=== PATIENT | male | born 1960 | race Two or more races ===

== ENCOUNTER 2018-04-04 14:51 | Inpatient (IN) | payer MEDICARE, OTHER ==
[2018-04-04] VITALS (10 sets, daily range): BP systolic 106–162; BP diastolic 53–131
[~2018-04-04] VITALS: Ht 180.3 cm; Wt 121.6 kg
[2018-04-04] MEDS ORDERED: FUROSEMIDE 40 MG/4 ML VIAL IV ONE (15:00)
--- NOTE | 2018-04-04 15:00 | NUR ---
SOB SINCE YESTERDAY, BILATERAL LOWER EXTREMITY, PT IS ON NON-REBREATHER SAT 98%, VSS, PT WAS PUT ON MONITOR AND HOSPITAL MD JORGE AT BS.
[2018-04-04] MEDS ORDERED: FUROSEMIDE 40 MG/4 ML VIAL ONE (15:03)
[2018-04-04 15:11] LABS: BASOPHILS # (AUTO) 0.1 /CMM (0.0-0.2); BASOPHILS % (AUTO) 0.5 % (0.0-2.0); EOSINOPHILS % (AUTO) 1.9 % (0.0-6.0); HEMATOCRIT 39 % (39-51); HEMOGLOBIN 12.9 g/dL (13.5-17.5); LYMPHOCYTES # (AUTO) 0.2 /CMM (0.8-4.8); LYMPHOCYTES % (AUTO) 2.2 % (20.0-44.0); MEAN CORPUSCULAR HGB CONC 33 g/dl (31.0-36.0); MEAN CORPUSCULAR VOLUME 78 fL (80-96); MONOCYTES # (AUTO) 0.5 /CMM (0.1-1.30); MONOCYTES % (AUTO) 4.5 % (2.0-12.0); NEUTROPHILS % (AUTO) 90.9 % (43.0-81.0); PLATELET COUNT (AUTO) 188 /CMM (150-450); RDW COEFFICIENT OF VARIATION 15.2 (11.5-15.0)
[2018-04-04] MEDS ORDERED: DILTIAZEM HCL 25 MG IV ONE ×2 (15:18→15:51)
[2018-04-04 15:25] LABS: CALCIUM, SERUM 8.8 mg/dL (8.5-10.1); CREATININE 1.8 mg/dL (0.6-1.3); INR 1.47 (0.85-1.15); POTASSIUM 4.2 mmol/L (3.5-5.1)
[2018-04-04 15:29] LABS: TROPONIN I 0.039 ng/mL (0.00-0.056)
[2018-04-04] MEDS ORDERED: DILTIAZEM HCL 50 MG IV IV ONE ×2 (15:30→16:00)
[2018-04-04 15:38] LABS: ALBUMIN 3.8 g/dL (3.4-5.0); BILIRUBIN,DIRECT 0.7 mg/dL (0.0-0.2); BILIRUBIN,TOTAL 1.5 mg/dL (0.2-1.0); TOTAL PROTEIN, SERUM 7.1 g/dL (6.4-8.2)
[2018-04-04] MEDS ORDERED: FENO160T PO (15:38)
[2018-04-04] MEDS ORDERED: INSU100V7 SQ (15:38)
[2018-04-04] MEDS ORDERED: FURO-144 PO (15:38)
[2018-04-04] MEDS ORDERED: BENA40TA8 PO (15:38)
[2018-04-04] MEDS ORDERED: CARV25TA2 PO (15:38)
[2018-04-04] MEDS ORDERED: METF-440 PO (15:38)
[2018-04-04] MEDS ORDERED: BLOO-668 IN (15:38)
[2018-04-04] MEDS ORDERED: RIVA10TA PO (15:39)
[2018-04-04] MEDS ORDERED: ATOR40TA PO (15:39)
[2018-04-04] MEDS ORDERED: INSU10VI3 SQ (15:39)
--- NOTE | 2018-04-04 15:43 | NUR ---
CALLED NURSING SUP. FOR BRANDI BED
--- NOTE | 2018-04-04 16:52 | NUR ---
[facility] PAGED, DRIVE IN TELLER
[2018-04-04] MEDS ORDERED: DILTIAZEM HCL IV 125 MG in IV NS 0.9% 100 ML IV PRN (17:00)
[2018-04-04] MEDS ORDERED: AMIODARONE 150 MG/3 ML VIAL IV ONE (17:00)
--- NOTE | 2018-04-04 17:05 | NUR ---
ICU 260 FOR CHF,A-FIB, RESP. DISTRESS, ADMITTING
[2018-04-04] MEDS ORDERED: HYDROCODONE/APAP 5/325MG 1 EACH TABLET PO PRN (18:00)
[2018-04-04] MEDS: INSULIN ASPART/LISPRO 100 UNIT/ML CARTRIDGE SQ SCH (18:00)
[2018-04-04] MEDS ORDERED: ZOLPIDEM TARTRATE 5 MG TABLET PO PRN (18:00)
[2018-04-04] MEDS ORDERED: AMIODARONE 900 MG in IV D5W 482 ML IV PRN (18:00)
[2018-04-04] MEDS ORDERED: ACETAMINOPHEN 325 MG TABLET PO PRN (18:00)
[2018-04-04] MEDS ORDERED: AMIODARONE 150 MG in IV D5W 100 ML IV ONE ×4 (18:00)
[2018-04-04] MEDS ORDERED: FUROSEMIDE 40 MG/4 ML VIAL IV SCH (18:00)
[2018-04-04] MEDS ORDERED: Z GUARD REMEDY 2 OZ OINT TP PRN (18:00)
[2018-04-04] MEDS ORDERED: ONDANSETRON HCL/PF 4 MG/2 ML VIAL IVP PRN (18:00)
[2018-04-04] MEDS ORDERED: MAGNESIUM HYDROXIDE 30 ML UDC PO PRN (18:00)
[2018-04-04] MEDS ORDERED: MAG HYDROX/AL HYDROX/SIMETH 30 ML UDC PO PRN (18:00)
--- NOTE | 2018-04-04 18:10 | NUR ---
RN INITIAL NOTES RECEIVED PT FROM ER VIA EDELMIRA. PT AWAKE, A/OX4. ON 02 AT 6LPM VIA [place]. SOB NOTED. RR 38, 02 SAT 88%. PLACED COMFORTABLY IN BED. CONNECTED TO MONITOR, A.FIB UNCONTROLLED. IV LINES FLUSHED. BODY ASSESSMENT DONE. PICTURE TAKEN AND PLACED IN THE CHART. PT ORIENTED TO ROOM AND CALL LIGHT. PT CONTINENT. PREFERS USE OF URINAL. PT STARTED ON AMIO DRIP. WILL CLOSELY MONITOR. DR. LOBO AWARE OF ADMISSION. WILL MONITOR.
[2018-04-04] MEDS: ATORVASTATIN 40 MG TABLET PO SCH (18:25)
--- NOTE | 2018-04-04 18:30 | NUR ---
RN NOTES NOVOLOG 20 UNITS NOT GIVEN, BLOOD SUGAR 115. PT HASN'T EATEN SINCE AM. CORDARONE 900MG IVP NOT GIVEN. PT ALREADY ON AMIO DRIP AT 1MG/MIN.
[2018-04-04] MEDS: AMIODARONE 900 MG in IV D5W 482 ML IV PRN (18:50)
--- NOTE | 2018-04-04 21:55 | NUR ---
ICU/ENGINE BOSS PT'S BLOOD SUGAR WAS 171, PT GIVEN LANTUS 45 UNITS SQ ORDERED BY . WILL CONTINUE TO MONITOR PT'S SUGARS ORDERED BY .
[2018-04-04] MEDS: CARVEDILOL 12.5 MG TABLET PO SCH (22:19)
[2018-04-04] MEDS: BLOOD SUGAR DIAGNOSTIC 1 EACH STRIP IN SCH (22:25)
[2018-04-04] MEDS: INSULIN GLARGINE, 100 UNIT/ML CARTRIDGE SQ SCH (22:33)
--- NOTE | 2018-04-04 23:21 | NUR ---
ICU/SEASONING MIXER PT HAS HISTORY OF RESPIRATORY FAILURE AND HAS A VERY PRODUCTIVE COUGH. CHEST XRAY SHOWS SMALL PLEURAL EFFUSION. PT IS CURRENTLY ON AMIODARONE DRIP WITH HIGH RATE HEART OF 135. ORDERED XOPENEX NBT 1.25 Q 6 HRS PRN.
[2018-04-04] MEDS ORDERED: LEVALBUTEROL HCL NEB 1.25 MG/0.5 ML VIAL.NEB NEB PRN (23:30)
[2018-04-05] VITALS (26 sets, daily range): BP systolic 93–143; BP diastolic 27–94
--- NOTE | 2018-04-05 00:30 | NUR ---
ICU/SLIVER LAP TENDER AMIODARONE DRIP HAS BEEN GOING AT 1MG FOR 6 HRS, THIS WAS CHANGED OVER TO 0.5MG FOR THIS 18 HRS. PT IS STILL A-FIB AND HAS NOT CONVERTED. WILL CONTINUE TO MONITOR THIS PT AND HEART RATE.
--- NOTE | 2018-04-05 01:23 | NUR ---
ICU/SUBWAY CONDUCTOR RESPIRATORY THERAPIST CALLED TO GIVE BREATHING TREATMENT TO PT DUE TO PRODUCTIVE COUGH. WILL CONTINUE TO MONITOR THIS PT.
--- NOTE | 2018-04-05 02:10 | NUR ---
ICU/EDUCATION GENERAL MANAGER PT PLACED IN CARDIAC CHAIR PER REQUEST, PT SAID HE IS UNABLE TO SIT IN BED DUE TO THE CONGESTION IN LUNGS AND FEELS LIKE HE CAN'T BREATH. PT'S O2 IS NOW 3 LITERS WITH SATURATION IN THE 98%, NO ACUTE DISTRESS SEEN AT THIS TIME. PT APPEARS TO BE COMFORTABLE WHILE IN CHAIR, WILL MONITOR THIS PT.
[2018-04-05 04:31] LABS: BASOPHILS % (AUTO) 0.2 % (0.0-2.0); EOSINOPHILS % (AUTO) 0.6 % (0.0-6.0); HEMATOCRIT 37 % (39-51); HEMOGLOBIN 12.4 g/dL (13.5-17.5); LYMPHOCYTES # (AUTO) 0.5 /CMM (0.8-4.8); MEAN CORPUSCULAR HGB CONC 33 g/dl (31.0-36.0); MEAN CORPUSCULAR VOLUME 79 fL (80-96); MONOCYTES # (AUTO) 0.7 /CMM (0.1-1.30); MONOCYTES % (AUTO) 8.7 % (2.0-12.0); NEUTROPHILS # (AUTO) 7.1 /CMM (1.8-8.9); NEUTROPHILS % (AUTO) 84.5 % (43.0-81.0); PLATELET COUNT (AUTO) 161 /CMM (150-450); RDW COEFFICIENT OF VARIATION 15.7 (11.5-15.0); RED BLOOD CELL COUNT(AUTO) 4.74 MIL/uL (4.5-6.0); WHITE BLOOD COUNT (AUTO) 8.4 K/uL (4.3-11.0)
[2018-04-05 04:52] LABS: ALBUMIN 3.8 g/dL (3.4-5.0); BILIRUBIN,TOTAL 1.5 mg/dL (0.2-1.0); CALCIUM, SERUM 9.1 mg/dL (8.5-10.1); CREATININE 1.6 mg/dL (0.6-1.3); MAGNESIUM 1.9 mg/dL (1.8-2.4); PHOSPHORUS 3.6 mg/dL (2.5-4.9); POTASSIUM 3.6 mmol/L (3.5-5.1); TOTAL PROTEIN, SERUM 6.8 g/dL (6.4-8.2)
[2018-04-05 05:05] LABS: THYROID STIMULATING HORMONE 1.42 uIU/mL (0.358-3.74)
[2018-04-05 05:07] LABS: ABG OXYGEN SATURATION 96.6 % (92.0-98.5); ABG PCO2 36.5 mmHg (35.0-45.0); ABG PH 7.491 (7.350-7.450); ABG PO2 95.2 mmHg (75.0-100.0); AaDO2 90.3 mmHg; COHb 0.3 % (0.5-1.5); MetHb 0.5 % (0.0-1.5); O2Hb 95.8 % (94.0-97.0); SITE, ABG Right Radial; VENT MODE, BG Nasal Cannula
--- NOTE | 2018-04-05 07:30 | NUR ---
ICU/RN: Pt received, awake, alert, sitting in chair, no distress noted. Per pt "I've been having difficulty sleeping at night, I can't breathe and I keep on coughing when I lay flat." Educated pt on disease process. On amiodarone drip, a-fib 110's. Will cont to monitor pt.
--- NOTE | 2018-04-05 07:54 | NUR ---
ICU/RN: Dr Smith at bedside for cardiac consult. Updated on pt status. New orders noted and carried out.
[2018-04-05] MEDS: BLOOD SUGAR DIAGNOSTIC 1 EACH STRIP IN SCH ×4 (08:08→21:59)
[2018-04-05] MEDS: CARVEDILOL 12.5 MG TABLET PO SCH ×2 (08:09→22:02)
[2018-04-05] MEDS: INSULIN ASPART/LISPRO 100 UNIT/ML CARTRIDGE SQ SCH ×3 (08:09→17:17)
[2018-04-05] MEDS: BENAZEPRIL HCL 20 MG TABLET PO SCH (08:09)
--- NOTE | 2018-04-05 08:45 | NUR ---
ICU/RN: Dr Vazquez at bedside, updated on pt status. Pt unable to expectorate sputum. SOB upon laying flat. New orders noted and carried out.
[2018-04-05 08:55] LABS: FERRITIN 226 ng/mL (8-388)
[2018-04-05 09:06] LABS: IRON, SERUM 23 ug/dl (50-175); TOTAL IRON BINDING CAPACITY 428 ug/dl (250-450)
[2018-04-05] MEDS: FUROSEMIDE 100 MG/10 ML VIAL IV SCH ×3 (09:53→17:04)
[2018-04-05] MEDS: POTASSIUM CHLORIDE 20 MEQ TAB.PRT.SR PO SCH ×3 (09:53→12:16)
[2018-04-05] MEDS: RIVAROXABAN 10 MG TABLET PO SCH ×2 (09:53→17:03)
--- NOTE | 2018-04-05 10:45 | NUR ---
ICU/RN: Dr Shine at bedside; discussed POC with pt.
--- NOTE | 2018-04-05 11:00 | NUR ---
ICU/RN: Per Dr Shine pt ok to transfer out of ICU if HR <100. If remains over 100 bpm after ordered dose is finished continue amiodarone drip and keep in ICU.
[2018-04-05] MEDS: LEVOFLOXACIN 500 MG /D5W 100ML 500 MG in PREMIX 1 EA IV SCH (11:10)
[2018-04-05] MEDS: GUAIFENESIN LA 600 MG TABLET.SA PO SCH ×2 (12:16→22:03)
[2018-04-05] MEDS: ACETYLCYSTEINE 20% SOLN 800 MG/4 ML VIAL NEB SCH ×2 (13:20→19:51)
--- NOTE | 2018-04-05 13:30 | NUR ---
ICU/RN: Pt motivated to own self-care, provided supplies for hygienic care. Collected urine and stool. Lab called for pickling operator.
--- NOTE | 2018-04-05 14:00 | NUR ---
ICU/RN: Pt with prelim Echo result; EF 20%, Dr Smith notified
[2018-04-05] MEDS: FENOFIBRATE NANOCRYS (145 MG) 145 MG TABLET PO SCH (14:49)
[2018-04-05] MEDS: SOD FERRIC GLUC 125 MG in IV NS 0.9% 100 ML IV SCH (14:49)
[2018-04-05 15:13] LABS: CREATININE, URINE 47.4 MG/DL (30.0-125.0); URINE TOTAL PROTEIN 16.3 mg/dL (0-11.9)
[2018-04-05 15:16] LABS: APPEARANCE,URINE CLEAR (CLEAR); BILIRUBIN,URINE NEGATIVE (NEGATIVE); BLOOD, URINE NEGATIVE Ery/uL (NEGATIVE); COLOR,URINE YELLOW (YELLOW); KETONES,URINE NEGATIVE (NEGATIVE); LEUKOCYTE ESTERASE ,URINE TRACE (NEGATIVE); NITRITE, URINE NEGATIVE (NEGATIVE); PH,URINE 6.5 (5.0-8.0); PROTEIN,URINE NEGATIVE (NEGATIVE); UGLUCOSE NEGATIVE (NEGATIVE)
[2018-04-05 15:17] LABS: OCCULT BLOOD STOOL NEGATIVE (NEGATIVE)
[2018-04-05 15:30] LABS: BACTERIA,URINE None seen /HPF (None Seen); RBC,URINE 0-2 /HPF (0-2); SQUAMOUS EPITHELIAL CELL,UR Few /HPF (None Seen)
[2018-04-05 16:38] LABS: EOSINOPHIL,URINE None Seen
[2018-04-05] MEDS: AMIODARONE 900 MG in IV D5W 482 ML IV PRN (17:00)
[2018-04-05] MEDS: ATORVASTATIN 40 MG TABLET PO SCH (17:06)
--- NOTE | 2018-04-05 19:45 | NUR ---
ICU/CENTRAL OFFICE TECHNICIAN RECEIVED REPORT FROM DAY NURSE, PT APPEARS TO BE ALERT X 4. PT IS ON ROOM AIR WITH SATURATION IS 97%, NO DISTRESS SEEN AT THIS TIME, PT APPEARS COMFORTABLE. PT HAS ACCU CHECK AC/HS WITH COVERAGE. PT USES URINAL, GOOD URINE OUTPUT. PT ONLY SKIN ISSUES IS BILAT LOWER EXTREMITIES. RIGHT A/C WITH AMIO DRIP AT 0.5MG/HR. PT IS UP IN CHAIR DUE TO COUGH AND SOB. PT CURRENTLY DENIES ANY PAIN, WILL CONTINUE TO MONITOR THIS PT.
[2018-04-05] MEDS: INSULIN GLARGINE, 100 UNIT/ML CARTRIDGE SQ SCH (21:59)
--- NOTE | 2018-04-05 22:20 | NUR ---
ICU/ANESTHESIA TECH BLOOD SUGAR IS 92 AT THIS TIME HOLD LANTUS 45 UNITS. WILL RECHECK BLOOD SUGAR AGAIN ORDERED BY MD. PT AT THIS TIME APPEARS COMFORTABLE, NO ACUTE DISTRESS SEEN.
--- NOTE | 2018-04-05 23:45 | NUR ---
ICU/INFORMATION ANALYST PT GIVEN BREATHING TREATMENT BY RT, PT TOLERATED THIS WELL. SATURATION IS 97% ON ROOM AIR. WILL CONTINUE OT MONITOR THIS PT.
[2018-04-06] VITALS (21 sets, daily range): BP systolic 90–135; BP diastolic 45–87
[2018-04-06] MEDS: ACETYLCYSTEINE 20% SOLN 800 MG/4 ML VIAL NEB SCH ×4 (01:45→19:30)
--- NOTE | 2018-04-06 02:00 | NUR ---
ICU/REHABILITATION LIAISON PT GOT BREATHING TREATMENT AND TOLERATED THIS WELL. REMAINS ON ROOM AIR WITH GOOD SATURATION AT 97%. NO ACUTE DISTRESS SEEN, PT APPEARS TO BE COMFORTABLE.
--- NOTE | 2018-04-06 04:15 | NUR ---
ICU/CALCINER FEEDER PT REFUSED AM CARE, SAID GIRLFRIEND WILL HELP WITH CLEAN UP/BATH LATER TODAY.
[2018-04-06 04:39] LABS: BASOPHILS % (AUTO) 0.4 % (0.0-2.0); EOSINOPHILS % (AUTO) 2.8 % (0.0-6.0); HEMATOCRIT 40 % (39-51); HEMOGLOBIN 12.9 g/dL (13.5-17.5); LYMPHOCYTES % (AUTO) 12.9 % (20.0-44.0); MEAN CORPUSCULAR HGB CONC 33 g/dl (31.0-36.0); MEAN CORPUSCULAR VOLUME 79 fL (80-96); MONOCYTES # (AUTO) 0.8 /CMM (0.1-1.30); MONOCYTES % (AUTO) 9.9 % (2.0-12.0); NEUTROPHILS # (AUTO) 5.7 /CMM (1.8-8.9); PLATELET COUNT (AUTO) 186 /CMM (150-450); RED BLOOD CELL COUNT(AUTO) 5.01 MIL/uL (4.5-6.0); WHITE BLOOD COUNT (AUTO) 7.8 K/uL (4.3-11.0)
[2018-04-06 04:58] LABS: TROPONIN I 0.067 ng/mL (0.00-0.056)
[2018-04-06 04:59] LABS: ALBUMIN 3.5 g/dL (3.4-5.0); BILIRUBIN,TOTAL 1.1 mg/dL (0.2-1.0); CALCIUM, SERUM 8.9 mg/dL (8.5-10.1); CREATININE 1.9 mg/dL (0.6-1.3); POTASSIUM 3.4 mmol/L (3.5-5.1); TOTAL PROTEIN, SERUM 6.5 g/dL (6.4-8.2)
--- NOTE | 2018-04-06 06:45 | NUR ---
ICU/ASBESTOS WIRE FINISHER STANDING SCALE USED FOR WEIGHT DUE TO PT UNABLE TO SIT IN BED PROPERLY WITHOUT COUGHING. WEIGHT WAS 262LBS
--- NOTE | 2018-04-06 07:30 | NUR ---
WOODS LABORER RECEIVED PATIENT AWAKE SITTING ON CHAIR WITH ON GOING AMIODARONE DRIP AT THE RATE OF 0.5 MCG ALERT ORIENTED X 3 ATRIAL FIBRILLATION ON THE MONITOR UNCONTROLLED COMPLAINTS OF CONSTANT COUGHING, COUGH MEDICATION ORDERED ABLE TO CONSUME HIS SHARE OF MEAL WITH ACCUCHECK DONE BEFORE EATING SWOLLEN LOWER EXTREMITIES NOTED MONITORED CLOSELY MONITORED INTAKE AND OUTPUT ACCURATELY
[2018-04-06] MEDS: BLOOD SUGAR DIAGNOSTIC 1 EACH STRIP IN SCH ×4 (07:31→21:14)
[2018-04-06] MEDS: INSULIN ASPART/LISPRO 100 UNIT/ML CARTRIDGE SQ SCH ×3 (07:41→17:45)
[2018-04-06] MEDS ORDERED: BUMETANIDE INJ 16 MG in IV NS 0.9% 16 ML IV ONE (08:00)
--- NOTE | 2018-04-06 08:00 | NUR ---
FUEL QUALITY TECH SEEN AND EXAMINED BY DR. PERSON WITH NEW ORDERS MADE AND CARRIED OUT BUMEX 16 MG IV DRIP WILL BE GIVEN
[2018-04-06] MEDS: DILTIAZEM HCL CD 240 MG PO SCH (08:19)
[2018-04-06] MEDS: GUAIFENESIN LA 600 MG TABLET.SA PO SCH ×2 (08:20→21:14)
[2018-04-06] MEDS: POTASSIUM CHLORIDE 20 MEQ TAB.PRT.SR PO SCH ×3 (08:20→09:59)
[2018-04-06] MEDS: BENAZEPRIL HCL 20 MG TABLET PO SCH (08:20)
[2018-04-06] MEDS: FENOFIBRATE NANOCRYS (145 MG) 145 MG TABLET PO SCH (08:20)
[2018-04-06] MEDS: AMIODARONE HCL 200 MG TABLET PO SCH ×3 (08:20→17:42)
[2018-04-06] MEDS: LEVOFLOXACIN 500 MG /D5W 100ML 500 MG in PREMIX 1 EA IV SCH (09:59)
--- NOTE | 2018-04-06 11:35 | NUR ---
SUPERVISOR [employer] GIVEN REPORT TO [facility] RN WILL BRING PATIENT ON A WHEEL CHAIR ENDORSED TO NOD
--- NOTE | 2018-04-06 11:57 | NUR ---
MS RN OPENING NOTES RECEIVED PATIENT FROM ICU IN STABLE CONDITION. IN NO APPARENT DISTRESS. BEDSIDE RAILS ARE UPX2. BED IS LOCKED AND LOWERED. CALL LIGHT IS WITHIN REACH. WILL CONTINUE TO MONITOR.
[2018-04-06] MEDS: DIGOXIN INJ 0.5 MG/2 ML AMPUL IV SCH ×2 (12:00→17:34)
--- NOTE | 2018-04-06 15:18 | NUR ---
HAVE NOT RECEIVED FERRLECIT YET FROM PHARMACY. CALLED PHARMACY TO HAVE IT SENT TO THE UNIT. PHARMACY WILL PROVIDE.
[2018-04-06] MEDS: SOD FERRIC GLUC 125 MG in IV NS 0.9% 100 ML IV SCH (15:42)
[2018-04-06] MEDS: RIVAROXABAN 10 MG TABLET PO SCH (17:43)
[2018-04-06] MEDS: ATORVASTATIN 40 MG TABLET PO SCH (17:44)
--- NOTE | 2018-04-06 18:54 | NUR ---
MS RN CLOSING NOTES PATIENT IN STABLE CONDITION. IN NO APPARENT DISTRESS. BEDSIDE RAILS ARE UPX2. BED IS LOCKED AND LOWERED. CALL LIGHT IS WITHIN REACH. IV LINE IS INTACT AND PATENT. ALL NEEDS WERE MET. WILL ENDORSE CARE TO CODING ANALYST NURSE FOR LUIS M.
--- NOTE | 2018-04-06 19:15 | NUR ---
RN OPENING NOTES PT AWAKE AND RESTING IN BEDSIDE CHAIR. NO COMPLAINTS OF PAIN, DISTRESS OR SOB AT THIS TIME. PT HAS A LEFT AC #20 IV AND RIGHT AC #18 IV BOTH INTACT AND PATENT. SAFETY PRECAUTIONS IN PLACE. BED IN LOWEST LOCKED POSITION, X2 SIDE RAILS UP, CALL LIGHT WITHIN REACH. WILL CONTINUE TO MONITOR.
[2018-04-06] MEDS: INSULIN GLARGINE, 100 UNIT/ML CARTRIDGE SQ SCH (21:16)
[2018-04-07] VITALS: BP 107/55
[2018-04-07 01:30] VITALS: BP 105/68
[2018-04-07] MEDS: DIGOXIN INJ 0.5 MG/2 ML AMPUL IV SCH (01:31)
[2018-04-07] MEDS: ACETYLCYSTEINE 20% SOLN 800 MG/4 ML VIAL NEB SCH ×4 (02:09→19:38)
[2018-04-07 04:00] VITALS: BP 124/86
[2018-04-07 06:55] LABS: BASOPHILS % (AUTO) 0.5 % (0.0-2.0); EOSINOPHILS % (AUTO) 3.4 % (0.0-6.0); HEMATOCRIT 39 % (39-51); LYMPHOCYTES # (AUTO) 1.1 /CMM (0.8-4.8); LYMPHOCYTES % (AUTO) 13.4 % (20.0-44.0); MEAN CORPUSCULAR HGB CONC 33 g/dl (31.0-36.0); MEAN CORPUSCULAR VOLUME 78 fL (80-96); MONOCYTES # (AUTO) 0.8 /CMM (0.1-1.30); MONOCYTES % (AUTO) 9.8 % (2.0-12.0); NEUTROPHILS # (AUTO) 5.8 /CMM (1.8-8.9); NEUTROPHILS % (AUTO) 72.9 % (43.0-81.0); PLATELET COUNT (AUTO) 244 /CMM (150-450); RED BLOOD CELL COUNT(AUTO) 4.99 MIL/uL (4.5-6.0); WHITE BLOOD COUNT (AUTO) 7.9 K/uL (4.3-11.0)
--- NOTE | 2018-04-07 06:56 | NUR ---
RN OPENING NOTES PT AWAKE AND RESTING IN BEDSIDE CHAIR. NO COMPLAINTS OF PAIN OR DISTRESS OVERNIGHT. PT HAS A LEFT AC #20 IV AND RIGHT AC #18 IV BOTH INTACT AND PATENT. SAFETY PRECAUTIONS IN PLACE. BED IN LOWEST LOCKED POSITION, X2 SIDE RAILS UP, CALL LIGHT WITHIN REACH. WILL ENDORSE TO DAY SHIFT NURSE FOR CONTINUITY OF CARE.
[2018-04-07] MEDS: ALBUTEROL FS 2.5 MG/0.5 ML VIAL.NEB NEB PRN ×2 (07:14→12:59)
--- NOTE | 2018-04-07 07:28 | NUR ---
MS RN NOTES PATIENT RECEIVED RESTING INSIDE ROOM, AWAKE, ALERT AND ORIENTED X 4, VERBALLY RESPONSIVE AND RESPONDS TO VERBAL AND TACTILE STIMULI. ABLE TO MAKE NEEDS KNOWN AND FOLLOW SIMPLE INSTRUCTIONS. BREATHING EVEN AND UNLABORED. NO SOB OR ACUTE DISTRESS NOTED AT THIS TIME. PATIENT DENIES ANY PAIN OR DISCOMFORT. NO CHANGES IN LOC NOTED AT THIS TIME. WILL CONTINUE TO MONITOR. BED LOCKED AND IN LOW POSITION. BILATERAL UPPER SIDE RAILS UP AND LOCKED. CALL LIGHT WITHIN EASY REACH
[2018-04-07 07:33] LABS: ALBUMIN 3.7 g/dL (3.4-5.0); CALCIUM, SERUM 9.3 mg/dL (8.5-10.1); MAGNESIUM 2.3 mg/dL (1.8-2.4); PHOSPHORUS 4.6 mg/dL (2.5-4.9); TOTAL PROTEIN, SERUM 6.9 g/dL (6.4-8.2)
[2018-04-07 08:00] VITALS: BP 118/81
[2018-04-07] MEDS: BLOOD SUGAR DIAGNOSTIC 1 EACH STRIP IN SCH ×4 (08:12→21:23)
[2018-04-07] MEDS: INSULIN ASPART/LISPRO 100 UNIT/ML CARTRIDGE SQ SCH ×3 (08:13→17:12)
[2018-04-07] MEDS: FENOFIBRATE NANOCRYS (145 MG) 145 MG TABLET PO SCH (08:16)
[2018-04-07] MEDS: BENAZEPRIL HCL 20 MG TABLET PO SCH (08:16)
[2018-04-07] MEDS: AMIODARONE HCL 200 MG TABLET PO SCH ×3 (08:16→17:00)
[2018-04-07] MEDS: GUAIFENESIN LA 600 MG TABLET.SA PO SCH ×2 (08:17→21:22)
[2018-04-07] MEDS: DILTIAZEM HCL CD 240 MG PO SCH (08:17)
[2018-04-07] MEDS ORDERED: FUROSEMIDE 80 MG TABLET PO SCH (09:30)
[2018-04-07] MEDS: LEVOFLOXACIN 500 MG /D5W 100ML 500 MG in PREMIX 1 EA IV SCH (10:23)
[2018-04-07] MEDS: SOD FERRIC GLUC 125 MG in IV NS 0.9% 100 ML IV SCH (15:38)
[2018-04-07 16:00] VITALS: BP 104/53
[2018-04-07] MEDS: RIVAROXABAN 10 MG TABLET PO SCH (17:11)
[2018-04-07] MEDS: ATORVASTATIN 40 MG TABLET PO SCH (17:12)
--- NOTE | 2018-04-07 18:48 | NUR ---
MS RN NOTES PATIENT RESTING INSIDE ROOM, AWAKE, ALERT AND ORIENTED X 4. VERBALLY RESPONSIVE AND RESPONDS TO VERBAL AND TACTILE STIMULI. ABLE TO MAKE NEEDS KNOWN AND FOLLOW SIMPLE INSTRUCTIONS. BREATHING EVEN AND UNLABORED. NO SOB OR ACUTE DISTRESS NOTED. PATIENT AFEBRILE, SKIN DRY AND WARM TO TOUCH. NO CHANGES IN LOC NOTED. IV INTACT AND PATENT, NO BLEEDING NOTED ON SITE. WILL ENDORSE TO INCOMING SHIFT FOR LUIS M. ALL NURSING NEEDS ATTENDED AND MET. DUE MEDICATIONS GIVEN AND TOLERATED WELL. PROVIDED WITH CALM, SAFE, HAZARD-FREE ENVIRONMENT. CALL LIGHT WITHIN EASY REACH
--- NOTE | 2018-04-07 19:20 | NUR ---
RN OPENING NOTES PT AWAKE AND ALERT. SITTING IN CHAIR AT BEDSIDE. NO COMPLAINTS OF PAIN, DISTRESS OR SOB AT THIS TIME. PT ABLE TO AMBULATE INDEPENDENTLY TO THE BATHROOM. PT HAS A LEFT AC #20 IV INTACT AND PATENT. SAFETY PRECAUTIONS IN PLACE. BED IN LOWEST LOCKED POSITION, X2 SIDE RAILS UP, CALL LIGHT WITHIN REACH. WILL CONTINUE TO MONITOR.
[2018-04-07 20:00] VITALS: BP 112/66
[2018-04-07] MEDS: INSULIN GLARGINE, 100 UNIT/ML CARTRIDGE SQ SCH (21:38)
[2018-04-08] MEDS: ALBUTEROL FS 2.5 MG/0.5 ML VIAL.NEB NEB PRN (01:44)
[2018-04-08] MEDS: ACETYLCYSTEINE 20% SOLN 800 MG/4 ML VIAL NEB SCH ×3 (01:44→13:23)
[2018-04-08 06:42] LABS: BASOPHILS % (AUTO) 0.3 % (0.0-2.0); EOSINOPHILS % (AUTO) 4.5 % (0.0-6.0); HEMATOCRIT 39 % (39-51); HEMOGLOBIN 12.7 g/dL (13.5-17.5); LYMPHOCYTES # (AUTO) 1.1 /CMM (0.8-4.8); LYMPHOCYTES % (AUTO) 14.5 % (20.0-44.0); MEAN CORPUSCULAR HGB CONC 33 g/dl (31.0-36.0); MEAN CORPUSCULAR VOLUME 78 fL (80-96); MONOCYTES % (AUTO) 12.5 % (2.0-12.0); NEUTROPHILS # (AUTO) 5.3 /CMM (1.8-8.9); NEUTROPHILS % (AUTO) 68.2 % (43.0-81.0); PLATELET COUNT (AUTO) 236 /CMM (150-450); RDW COEFFICIENT OF VARIATION 16.2 (11.5-15.0); RED BLOOD CELL COUNT(AUTO) 4.96 MIL/uL (4.5-6.0); WHITE BLOOD COUNT (AUTO) 7.8 K/uL (4.3-11.0)
[2018-04-08 06:45] LABS: CREATININE 1.8 mg/dL (0.6-1.3); MAGNESIUM 2.1 mg/dL (1.8-2.4); PHOSPHORUS 4.6 mg/dL (2.5-4.9); POTASSIUM 3.6 mmol/L (3.5-5.1)
--- NOTE | 2018-04-08 06:49 | NUR ---
RN CLOSING NOTES PT AWAKE AND ALERT. SITTING IN CHAIR AT BEDSIDE. NO COMPLAINTS OF PAIN, DISTRESS OR SOB OVERNIGHT. PT ABLE TO AMBULATE INDEPENDENTLY TO THE BATHROOM. PT HAS A LEFT AC #20 IV INTACT AND PATENT. SAFETY PRECAUTIONS IN PLACE. BED IN LOWEST LOCKED POSITION, X2 SIDE RAILS UP, CALL LIGHT WITHIN REACH. WILL ENDORSE TO DAY SHIFT NURSE FOR CONTINUITY OF CARE.
[2018-04-08] MEDS: BLOOD SUGAR DIAGNOSTIC 1 EACH STRIP IN SCH ×2 (07:04→13:51)
[2018-04-08 08:00] VITALS: BP 125/76
--- NOTE | 2018-04-08 08:00 | NUR ---
MS RN AM NOTES PT AWAKE AND ALERT. SITTING IN CHAIR AT BEDSIDE. NO COMPLAINTS OF PAIN, DISTRESS OR SOB AT THIS TIME. PT ABLE TO AMBULATE INDEPENDENTLY TO THE BATHROOM. PT HAS A LEFT AC #20 IV INTACT AND PATENT. SAFETY PRECAUTIONS IN PLACE. BED IN LOWEST LOCKED POSITION, X2 SIDE RAILS UP, CALL LIGHT WITHIN REACH. WILL CONTINUE TO MONITOR.
[2018-04-08] MEDS: INSULIN ASPART/LISPRO 100 UNIT/ML CARTRIDGE SQ SCH ×2 (08:46→12:00)
[2018-04-08] MEDS: DILTIAZEM HCL CD 240 MG PO SCH (08:48)
[2018-04-08] MEDS: FENOFIBRATE NANOCRYS (145 MG) 145 MG TABLET PO SCH (08:49)
[2018-04-08] MEDS: BENAZEPRIL HCL 20 MG TABLET PO SCH (08:49)
[2018-04-08] MEDS: AMIODARONE HCL 200 MG TABLET PO SCH ×2 (08:49→13:51)
[2018-04-08] MEDS: GUAIFENESIN LA 600 MG TABLET.SA PO SCH (08:49)
[2018-04-08] MEDS ORDERED: FUROSEMIDE 80 MG TABLET PO SCH (09:00)
[2018-04-08] MEDS: LEVOFLOXACIN 500 MG /D5W 100ML 500 MG in PREMIX 1 EA IV SCH (11:09)
[2018-04-08] MEDS ORDERED: RIVA10TA PO (12:08)
[2018-04-08] MEDS ORDERED: FURO80TA3 PO (12:08)
[2018-04-08] MEDS ORDERED: AMIO200T7 PO (12:08)
[2018-04-08] MEDS ORDERED: DILT240C64 PO (12:08)
[2018-04-08] MEDS ORDERED: LEVO500T75 PO (12:08)
[2018-04-08] MEDS ORDERED: GUAI600T53 PO (12:13)
[2018-04-08 13:51] VITALS: BP 115/69
--- NOTE | 2018-04-08 13:54 | NUR ---
[id number] 20 UNITS HELD BS 89
[2018-04-08] MEDS: SOD FERRIC GLUC 125 MG in IV NS 0.9% 100 ML IV SCH (14:00)
--- NOTE | 2018-04-08 14:11 | NUR ---
PT REFUSED FERLICITT IV TO BE ADMINISTERED AND REFUSED TO HAVE A NEW IV H/L TO BE INSERTED WELL INSPITE OF EXPLAINING ITS RISKS AND BENEFITS.
--- NOTE | 2018-04-08 15:30 | NUR ---
DISCHARGED PT HOME WITH STABLE V/S VIA PRIVATE CAR.ACCOMPANIED BY HIS .PRESCRIPTION GIVEN TO THE PT.INSTRUCTED TO DO FOLLOW UP FOR SLEEP STUDY AND F/U WITH PMD IN ONE WEEK.
== END 2018-04-08 15:45 | disposition home or self-care (01) | DRG 280 ==
LOC: ER 14:52 → ICU 17:12 → MED 04-06 11:49
PROVIDERS: ADMIT Internal Medicine; ATTEND Internal Medicine
DX: I13.0 Hypertensive heart and chronic kidney disease with heart failure and stage 1 through stage 4 chronic kidney disease, or unspecified chronic kidney disease (principal); J96.01 Acute respiratory failure with hypoxia; I21.A1 Myocardial infarction type 2; I50.23 Acute on chronic systolic (congestive) heart failure; E11.22 Type 2 diabetes mellitus with diabetic chronic kidney disease; E66.01 Morbid (severe) obesity due to excess calories; D50.9 Iron deficiency anemia, unspecified; I42.9 Cardiomyopathy, unspecified; I48.91 Unspecified atrial fibrillation; E78.5 Hyperlipidemia, unspecified; G47.33 Obstructive sleep apnea (adult) (pediatric); Z68.37 Body mass index [BMI] 37.0-37.9, adult; N18.9 Chronic kidney disease, unspecified; I25.10 Atherosclerotic heart disease of native coronary artery without angina pectoris; Z95.5 Presence of coronary angioplasty implant and graft; Z95.810 Presence of automatic (implantable) cardiac defibrillator; E87.70 Fluid overload, unspecified; J40 Bronchitis, not specified as acute or chronic; Z79.01 Long term (current) use of anticoagulants; Z87.891 Personal history of nicotine dependence
CPT/HCPCS: 36415; 36600; 71045-TC; 80048-TC; 80053-TC; 80061-TC; 80076-TC; 81000-TC; 82272-TC; 82570-TC; 82728-TC; 82803-TC; 82962-TC; 83540-TC; 83735-TC; 83880; 84100-TC; 84155-TC; 84300-TC; 84443-TC; 84484-TC; 85025-TC; 85730-TC; 87070-TC; 87081-TC; 93307-TC; 93970-TC; A4216; A4606; J0282; J1160; J1815; J1940; J1956; J2916; J3490; J7030; J7060; Z7610

== ENCOUNTER 2023-03-25 22:13 | Emergency (ER) | payer MEDICARE, OTHER ==
[~2023-03-25] VITALS: Ht 180.3 cm; Wt 136.1 kg
[~2023-03-25 22:13] MED LIST: AMIO200T7 PO; ATOR40TA PO; BENA40TA8 PO; BLOO-668 IN; DILT-5 PO; FENO160T PO; FURO-144 PO; FURO80TA3 PO; GUAI600T53 PO; INSU10VI3 SQ; LEVO500T23 PO; METF-440 PO; RIVA10TA PO
--- NOTE | 2023-03-25 22:20 | NUR ---
ROBERTO 102 FROM HOME FOR ABD PAIN. WAS SEEN AT [facility] YESTERDAY. LABS AND CT DONE. PT WAS DX WITH LIVER LESIONS. PATIENT IS AAOX4. ABLE TO MAKE NEEDS KNOWN. PLACED COMFORTABLY IN BED. VITALS CHECKED.
[2023-03-25] MEDS ORDERED: POLY17PO4 PO (23:10)
[2023-03-25 23:16] VITALS: BP 99/66
--- NOTE | 2023-03-25 23:16 | NUR ---
Patient discharged to home in stable condition. Written and verbal after care instructions given. Patient verbalizes understanding of instruction.
== END 2023-03-25 23:17 | disposition home or self-care (01) ==
LOC: ER 22:16
DX: K59.00 Constipation, unspecified (principal); R10.10 Upper abdominal pain, unspecified; I11.0 Hypertensive heart disease with heart failure; I50.9 Heart failure, unspecified; I48.91 Unspecified atrial fibrillation; E11.9 Type 2 diabetes mellitus without complications; Z79.899 Other long term (current) drug therapy; Z79.4 Long term (current) use of insulin